=== PATIENT | female | born 1960 | race Caucasian/White ===

== ENCOUNTER → 2017-08-28 | Emergency (ER) | payer OTHER ==
[~2017-08-28] VITALS: Ht 175.3 cm; Wt 99.8 kg
[~2017-08-28] MED LIST: CIPRO500 MG PO; CYCLOBENZAPRINE10 MG PO; KETO10TA2 PO; ORPHENADRINE C100 MG PO; PERCOCET 5/321 UDTAB PO; PREMARIN0.45 MG; RECTICARE30 GM TP
== END | disposition home or self-care (01) ==
LOC: ER 18:19
DX: M54.89 Other dorsalgia (principal)